=== PATIENT | male | born 1950 | race Caucasian/White ===

== ENCOUNTER → 2017-07-17 | Outpatient (CLI) | payer MEDICARE, OTHER ==
[~2017-07-17] MED LIST: ALLO100T70 PO; AMOX-559 PO; ASPI81TA94 PO; BARIUM SULFATE 176 GM BTL PO ONE; BARIUM SULFATE 340 GM POWD ONE; BENA20TA3 PO; HYDR-4240 PO; KET10 PO; LIPITOR; NAPR-744 PO; TAMS0.4C25 PO; TRAM-627 PO; VITA1CAP46 PO
[2017-07-17 08:14] LABS: PLATELET COUNT, AUTOMATED 242 K/uL (150-450)
--- NOTE | 2017-07-17 17:49 | RADIOLOGY IMAGING REPORT ---
[facility] PATIENT NAME: Silvano Dahl : 1950 MR: [id number] V: [id number] EXAM DATE: ORDERING PHYSICIAN: LOLA CUNNINGHAM TECHNOLOGIST: Location: [facility] Patient: Silvano Dahl : 1950 Visit/Account:[id number] Date of Sevice: 07/17/2017 Exam type: UPPER GI W/SMALL BOWEL SERIES History: Anemia Comparison: None. Findings: Preliminary sterilizer operator film of abdomen reveals a large amount of fecal material throughout the colon which can be seen with constipation. Double contrast upper GI series was performed with thick and thin ba rium. There is a small hiatal hernia with a large amount of gastroesophageal reflux. Very mild narrowing was identified at the lower esophageal sphincter. No definite mucosal erosions were seen. Remainder of the stomach duodenal bulb and duodenal C-loop are unremarkable. Barium was then followed through out the nondilated small bowel to the unremarkable terminal ileum. The mucosal pattern is unremarkab le. Transit time to the right-sided colon was 45 minutes. Of note there appear to be extrinsic mass effect displacing the loops of small bowel superiorly from the pelvis and mid abdomen without obstru ction. The fluoroscopy dose area product was 1502.57 micro-Troy per meter squared IMPRESSION: 1. Small hiatal hernia with a large amount of gastric esophageal reflux and mild narrowing of the lo wer esophageal sphincter The small bowel did not appear dilated with transit time to the right-sided colon in 45 minutes. The mucosal pattern also appear unremarkable however there appear to be extrinsic mass effect on the maddie tral small bowel loops displacing the bowel superiorly from the pelvis and mid abdomen. If an intra- abdominal or pelvic mass is of clinical concern CT may be helpful. Report Dictated By: Brigitte Barton MD at 07/17/2017 5:40 PM Report E-Signed By: Brigitte Barton MD at 07/17/2017 5:46 PM WSN:[email or web address]
== END ==
LOC: RAD 01:28
PROVIDERS: ATTEND Internal Medicine
DX: K21.9 Gastro-esophageal reflux disease without esophagitis (principal); K44.9 Diaphragmatic hernia without obstruction or gangrene; K22.2 Esophageal obstruction
CPT/HCPCS: 36415; 74245; 85025

== ENCOUNTER → 2017-07-18 | Outpatient (CLI) | payer MEDICARE, OTHER ==
[~2017-07-18] MED LIST changes: -BARIUM SULFATE 176 GM BTL PO ONE; -BARIUM SULFATE 340 GM POWD ONE
== END ==
LOC: LAB 09:24
PROVIDERS: ATTEND Internal Medicine
DX: D64.9 Anemia, unspecified (principal); R30.0 Dysuria
CPT/HCPCS: 36415; 81001; 82728; 83540; 85018; 85045; 87088

== ENCOUNTER 2017-07-19 10:34 | Outpatient (RCR) | payer MEDICARE, OTHER | END 2017-07-19 18:00 | disposition home or self-care (01) | LOC: CT 10:34 | PROVIDERS: ATTEND Internal Medicine | DX: R71.0 Precipitous drop in hematocrit (principal); K63.89 Other specified diseases of intestine; D64.9 Anemia, unspecified | CPT/HCPCS: 82565 ==

== ENCOUNTER 2017-07-19 12:24 | Inpatient (IN) | payer MEDICARE, OTHER ==
[~2017-07-19] VITALS: Ht 182.9 cm; Wt 88.5 kg
--- NOTE | 2017-07-19 12:54 | ER Report ---
History and Physical Time Seen By MD: 12:43 Hx. of Stated Complaint: Pt. here for abnormal lab values. Elevated Creat and decreased GFR. Pt. states he is has no symptoms other than his UTI sx and he is on an antibiotice. Pt. states he is still voiding normally. HPI/ROS CHIEF COMPLAINT: Renal failure HISTORY OF PRESENT ILLNESS: 59-year-old male patient presents to emergency room with complaint of renal failure. Patient states he feels fine. He was going to have a CAT scan done to evaluate a mass in his abdomen. He states they checked his kidney function today which was negative. He was referred to the emergency room at that time. Patient states he's feeling fine. States these voiding normally, that he is not had any difficulties now. Patient states he was started on Flomax due to some BPH. He denies any previous history with his kidney function. Patient states he is urinating 4-5 times a day. Patient was stopped on NSAIDs in the recent past. REVIEW OF SYSTEMS: Respiratory: No cough, no dyspnea. Cardiovascular: No chest pain, no palpitations. Gastrointestinal: No vomiting, no abdominal pain. Musculoskeletal: No back pain. Allergies: Coded Allergies: No Known Drug Allergies (Unverified , 07/19/17) Home Meds Active Scripts Amoxicillin/Pot Clav 875-125 Mg Tab (AUGMENTIN 875-125 TABLET) 1 Each Tablet, 1 TAB PO Q12H for 10 Days, #20 TAB Prov:LOLA CUNNINGHAM MD 07/18/17 Benazepril Hcl (LOTENSIN) 20 Mg Tablet, 1 TAB PO QDAY, #90 TAB 4 Refills Prov:LOLA CUNNINGHAM MD 05/02/17 Reported Medications Vitamin B Complex (VITAMIN B COMPLEX) 1 Each Capsule, 1 EACH PO QDAY, CAPSULE 05/10/17 Tamsulosin Hcl (FLOMAX) 0.4 Mg Cap.er.24h, 0.4 MG PO QDAY, CAP 02/14/17 Discontinued Reported Medications Aspirin (ASPIRIN) 81 Mg Tab.chew, 81 MG PO DAILY, TAB.CHEW 05/13/13 Past Medical/Surgical History Patient has a past medical history of hypertension, arthritis, BPH, anemia, alcohol use. Patient has a surgical history of vasectomy, reversal, hernia repair, left shoulder surgery, back surgery, carpal tunnel bilaterally. Patient has a family medical history of cancer. Reviewed Nurses Notes: Yes Hx Smoking: No Smoking Status: Never Smoker Hx Substance Use Disorder: No Hx Alcohol Use: Yes Constitutional Vital Sign - Last 24 Hours 07/19/17 07/19/17 07/19/17 12:34 14:40 14:58 Temp 98.8 Pulse 78 Resp 20 18 B/P (MAP) 162/83 173/79 173/79 (110) Pulse Ox 95 O2 Delivery Room Air Intake and Output 07/19/17 07/19/17 07/20/17 15:00 23:00 07:00 Intake Total 500 ml Output Total 2125 ml Balance -1625 ml Physical Exam General Appearance: The patient is alert, has no immediate need for airway protection and no current signs of toxicity. Respiratory: Chest is non tender, lungs are clear to auscultation. Cardiac: regular rate and rhythm. Gastrointestinal: Abdomen is soft and non tender, no masses, bowel sounds normal. Musculoskeletal: Neck: Neck is supple and non tender. Extremities have full range of motion and are non tender. Skin: No rashes or lesions. DIFFERENTIAL DIAGNOSIS: After history and physical exam differential diagnosis was considered for acute kidney failure, abdominal mass. Medical Decision Making Data Points Result Diagram: 07/19/17 1255 07/19/17 1255 Laboratory Hematology Test 07/19/17 12:55 07/19/17 12:57 Red Blood Count 3.18 M/uL (4.00-5.60) Mean Corpuscular Volume 94.7 fL (80.0-96.0) Mean Corpuscular Hemoglobin 32.2 pg (26.0-33.0) Mean Corpuscular Hemoglobin Concent 34.0 g/dL (32.0-36.0) Red Cell Distribution Width 13.5 % (11.5-14.5) Mean Platelet Volume 6.7 fL (7.2-11.1) Neutrophils (%) (Auto) 74.5 % (39.4-72.5) Lymphocytes (%) (Auto) 14.5 % (17.6-49.6) Monocytes (%) (Auto) 7.4 % (4.1-12.4) Eosinophils (%) (Auto) 2.6 % (0.4-6.7) Basophils (%) (Auto) 1.0 % (0.3-1.4) Nucleated RBC Relative Count (auto) 0.0 /100WBC Neutrophils # (Auto) 6.8 K/uL (2.0-7.4) Lymphocytes # (Auto) 1.3 K/uL (1.3-3.6) Monocytes # (Auto) 0.7 K/uL (0.3-1.0) Eosinophils # (Auto) 0.2 K/uL (0.0-0.5) Basophils # (Auto) 0.1 K/uL (0.0-0.1) Nucleated RBC Absolute Count (auto) 0.00 K/uL Sodium Level 137 mmol/L (137-145) Potassium Level 5.9 mmol/L (3.5-5.0) Chloride Level 103 mmol/L (98-107) Carbon Dioxide Level 19 mmol/L (22-30) Blood Urea Nitrogen 93 mg/dl (9-21) Creatinine 9.60 mg/dl (0.66-1.25) Glomerular Filtration Rate Calc 5.5 Random Glucose 151 mg/dl (75-110) Calcium Level 9.9 mg/dl (8.4-10.2) Total Bilirubin 0.5 mg/dl (0.2-1.3) Aspartate Amino Transf (AST/SGOT) 16 U/L (0-35) Alanine Aminotransferase (ALT/SGPT) 22 U/L (0-56) Alkaline Phosphatase 65 U/L (0-126) Total Protein 8.0 gm/dl (6.3-8.2) Albumin 4.3 g/dl (3.5-5.0) Urine Color Yellow Urine Clarity Turbid Urine pH 6.0 pH (4.8-9.5) Urine Specific [place] 1.008 Urine Protein 30 mg/dL (NEGATIVE) Urine Glucose (UA) Negative mg/dL (NEGATIVE) Urine Ketones Negative mg/dL (NEGATIVE) Urine Blood Small (NEGATIVE) Urine Nitrite Negative (NEGATIVE) Urine Bilirubin Negative (NEGATIVE) Urine Urobilinogen Negative mg/dL (0.2-1.9) Urine Leukocyte Esterase Large (NEGATIVE) Urine RBC 22 /HPF (0-2/HPF) Urine WBC 1165 /HPF (0-5/HPF) Urine WBC Clumps Many /HPF Urine Squamous Epithelial Cells None /LPF (</=FEW) Urine Amorphous Crystals Few /HPF Urine Bacteria Few /HPF (NONE-FEW) Urine Mucus None /HPF (NONE-FEW) Chemistry Test 07/19/17 12:55 07/19/17 12:57 White Blood Count 9.2 k/uL (4.5-11.0) Red Blood Count 3.18 M/uL (4.00-5.60) Hemoglobin 10.3 g/dL (14.0-18.0) Hematocrit 30.1 % (42.0-52.0) Mean Corpuscular Volume 94.7 fL (80.0-96.0) Mean Corpuscular Hemoglobin 32.2 pg (26.0-33.0) Mean Corpuscular Hemoglobin Concent 34.0 g/dL (32.0-36.0) Red Cell Distribution Width 13.5 % (11.5-14.5) Platelet Count 238 K/uL (150-450) Mean Platelet Volume 6.7 fL (7.2-11.1) Neutrophils (%) (Auto) 74.5 % (39.4-72.5) Lymphocytes (%) (Auto) 14.5 % (17.6-49.6) Monocytes (%) (Auto) 7.4 % (4.1-12.4) Eosinophils (%) (Auto) 2.6 % (0.4-6.7) Basophils (%) (Auto) 1.0 % (0.3-1.4) Nucleated RBC Relative Count (auto) 0.0 /100WBC Neutrophils # (Auto) 6.8 K/uL (2.0-7.4) Lymphocytes # (Auto) 1.3 K/uL (1.3-3.6) Monocytes # (Auto) 0.7 K/uL (0.3-1.0) Eosinophils # (Auto) 0.2 K/uL (0.0-0.5) Basophils # (Auto) 0.1 K/uL (0.0-0.1) Nucleated RBC Absolute Count (auto) 0.00 K/uL Glomerular Filtration Rate Calc 5.5 Calcium Level 9.9 mg/dl (8.4-10.2) Total Bilirubin 0.5 mg/dl (0.2-1.3) Aspartate Amino Transf (AST/SGOT) 16 U/L (0-35) Alanine Aminotransferase (ALT/SGPT) 22 U/L (0-56) Alkaline Phosphatase 65 U/L (0-126) Total Protein 8.0 gm/dl (6.3-8.2) Albumin 4.3 g/dl (3.5-5.0) Urine Color Yellow Urine Clarity Turbid Urine pH 6.0 pH (4.8-9.5) Urine Specific [place] 1.008 Urine Protein 30 mg/dL (NEGATIVE) Urine Glucose (UA) Negative mg/dL (NEGATIVE) Urine Ketones Negative mg/dL (NEGATIVE) Urine Blood Small (NEGATIVE) Urine Nitrite Negative (NEGATIVE) Urine Bilirubin Negative (NEGATIVE) Urine Urobilinogen Negative mg/dL (0.2-1.9) Urine Leukocyte Esterase Large (NEGATIVE) Urine RBC 22 /HPF (0-2/HPF) Urine WBC 1165 /HPF (0-5/HPF) Urine WBC Clumps Many /HPF Urine Squamous Epithelial Cells None /LPF (</=FEW) Urine Amorphous Crystals Few /HPF Urine Bacteria Few /HPF (NONE-FEW) Urine Mucus None /HPF (NONE-FEW) Urinalysis Test 07/19/17 12:57 Urine Color Yellow Urine Clarity Turbid Urine pH 6.0 pH (4.8-9.5) Urine Specific [place] 1.008 Urine Protein 30 mg/dL (NEGATIVE) Urine Glucose (UA) Negative mg/dL (NEGATIVE) Urine Ketones Negative mg/dL (NEGATIVE) Urine Blood Small (NEGATIVE) Urine Nitrite Negative (NEGATIVE) Urine Bilirubin Negative (NEGATIVE) Urine Urobilinogen Negative mg/dL (0.2-1.9) Urine Leukocyte Esterase Large (NEGATIVE) Urine RBC 22 /HPF (0-2/HPF) Urine WBC 1165 /HPF (0-5/HPF) Urine WBC Clumps Many /HPF Urine Squamous Epithelial Cells None /LPF (</=FEW) Urine Amorphous Crystals Few /HPF Urine Bacteria Few /HPF (NONE-FEW) Urine Mucus None /HPF (NONE-FEW) EKG/Imaging Imaging COMPUTED TOMOGRAPHY OF THE Abdomen and Pelvis without CONTRAST INDICATION: Reportedly an abdominal mass. TECHNIQUE: Contiguous axial 3.[address] images were obtained through the abdomen and pelvis without intravenous contrast. Of note, there is significant residual barium within the colon from the upper GI study of July 17, 2017. Coronal and sagittal reformatted images were submitted. COMPARISON: Upper GI July 17, 2017. FINDINGS: With the large volume of barium in the colon, which results in marked streak artifact throughout almost the entirety of the abdomen and pelvis, the examination should be considered essentially nondiagnostic. The bladder is distended. There is moderate aortic atherosclerosis. The morphology of the left kidney appears atypical but is largely obscured. There are degenerative findings in the spine. Mild atelectasis at the lung bases. IMPRESSION: Essentially nondiagnostic study given extensive barium within the colon and associated artifact. However, the bladder is significantly distended and likely results in the small bowel displacement described/demonstrated on the upper GI study of July 17, 2017. Atypical appearing morphology of the left kidney (largely obscured by artifact) . Repeat CT when barium has cleared the colon is recommended. One of the following dose optimization techniques was utilized in the performance of this exam: Automated exposure control; adjustment of the mA and/ or kV according to the patient's size; or use of an iterative reconstruction technique. Specific details can be referenced in the facility's radiology CT exam operational policy. Report Dictated By: Nick Valdez MD at 07/19/2017 2:30 PM Report E-Signed By: Nick Valdez MD at 07/19/2017 2:38 PM Renal ultrasound Indication: Abnormal creatinine. History of urinary tract infection. Comparison: None available Findings: Right kidney measures 11.8 x 6.4 x 5.4 cm in cc, AP, and transverse dimensions respectively. Left kidney measures 11.5 x 4.9 x 5.3 cm in cc, AP, and transverse dimensions respectively. There is normal echogenicity of the bilateral kidneys. There is a least moderate hydronephrosis seen bilaterally without stones or masses identified. Blood flow both kidneys normal symmetric. The resistive index right kidney 0.75 and the left 0.63. Bilateral ureteral jets were seen. Left ureteral jet was not a strong as the right. Urinary bladder imaging shows debris without other focal normality and there is prominent post residual 1339 mL.. Visualized abdominal aorta and IVC are unremarkable. IMPRESSION: 1. Moderate bilateral hydronephrosis without cause identified. 2. There is debris seen within the urinary bladder. There is significant postvoid residual present in the urinary bladder. Report Dictated By: Keegan Diaz at 07/19/2017 2:12 PM Report E-Signed By: Keegan Diaz at 07/19/2017 2:14 PM ED Course/Re-evaluation ED Course Patient was admitted to an exam room, history and physical were obtained. Differential diagnoses were considered. On examination lungs are clear, heart regular, abdomen soft nontender. Repeat labs were done. A CBC, CMP, urinalysis, ultrasound of kidneys. The lab results showed an elevated creatinine of 9.6, GFR 5.5, potassium of 5.9. Patient had a hemoglobin of 10.3. The renal ultrasound showed bilateral hydronephrosis. A CT scan of the abdomen and pelvis was done. Liver difficult to ascertain any findings in the intestines secondary to barium contrast. However the patient does have significant urinary retention. A Collins was placed and 2100 cc were removed. I discussed the case with Dr. Gavin, hospitalist at [facility], who recommended talking with the hospitalist here. She states that they're not couple that should be more than happy to admit. Her thought was that they would just monitor and continued to drain the bladder using a Collins. I then discussed the case with Dr. Dow, hospitalist, who came down and evaluated the patient. He attempted to contact Dr. Louis or Dr. Dean, however they were unavailable. Dr. Dow did agree to accept the patient for admission. Decision to Disposition Date: Jul 19, 2017 Decision to Disposition Time: 16:06 Depart Departure Latest Vital Signs Vital Signs Date Time Temp Pulse Resp B/P (MAP) Pulse Ox O2 Delivery O2 Flow Rate FiO2 07/19/17 14:58 18 173/79 (110) 07/19/17 12:34 98.8 78 95 Room Air Impression: Primary Impression: Acute renal failure Additional Impression: Urinary obstruction Condition: Improved Disposition: Admitted from ER Referrals: FAZAL MARCUM MD (PCP) Problem Qualifiers Primary Impression: Acute renal failure Acute renal failure type: unspecified Qualified Codes: N17.9 - Acute kidney failure, unspecified MERRY BLANCOSSBrian GAYTAN Jul 19, 2017 12:54
[2017-07-19] MEDS ORDERED: NS(*) 0.9% 500 ML BAG 500 ML IV ONE (12:55)
[2017-07-19 13:09] LABS: PLATELET COUNT, AUTOMATED 238 K/uL (150-450)
--- NOTE | 2017-07-19 14:19 | RADIOLOGY IMAGING REPORT ---
FACILITY: [facility] PATIENT NAME: Silvano Dahl : 1950 MR: [id number] V: [id number] EXAM DATE: ORDERING PHYSICIAN: RENITA BLANCO TECHNOLOGIST: Location: Patient: Silvano Dahl : 1950 Visit/Account:[id number] Date of Sevice: 07/19/2017 Renal ultrasound Indication: Abnormal creatinine. History of urinary tract infection. Comparison: None available Findings: Right kidney measures 11.8 x 6.4 x 5.4 cm in cc, AP, and transverse dimensions respectively. Left kidney measures 11.5 x 4.9 x 5.3 cm in cc, AP, and transverse dimensions respectively. There is normal echogenicity of the bilateral kidneys. There is a least moderate hydronephrosis seen bilaterally without stones or masses identified. Blood flow both kidneys normal symmetric. The resistive index right kidney 0.75 and the left 0.63. Bilateral ureteral jets were seen. Left ureteral jet was not a strong as the right. Urinary bladder imaging shows debris without other focal normality and there is prominent post residu al 1339 mL.. Visualized abdominal aorta and IVC are unremarkable. IMPRESSION: 1. Moderate bilateral hydronephrosis without cause identified. 2. There is debris seen within the urinary bladder. There is significant postvoid residual present in the urinary bladder. Report Dictated By: Keegan Diaz at 07/19/2017 2:12 PM Report E-Signed By: Keegan Diaz at 07/19/2017 2:14 PM WSN:[id number]
--- NOTE | 2017-07-19 14:42 | RADIOLOGY IMAGING REPORT ---
FACILITY: [facility] - [place], [place] PATIENT NAME: Silvano Dahl : 1950 MR: [id number] V: [id number] EXAM DATE: ORDERING PHYSICIAN: RENITA BLANCO TECHNOLOGIST: Location: [facility] Patient: Silvano Dahl : 1950 Visit/Account:[id number] Date of Sevice: 07/19/2017 COMPUTED TOMOGRAPHY OF THE Abdomen and Pelvis without CONTRAST INDICATION: Reportedly an abdominal mass. TECHNIQUE: Contiguous axial 3.[address] images were obtained through the abdomen and pelvis without in travenous contrast. Of note, there is significant residual barium within the colon from the upper GI study of July 17, 2017. Coronal and sagittal reformatted images were submitted. COMPARISON: Upper GI July 17, 2017. FINDINGS: With the large volume of barium in the colon, which results in marked streak artifact throughout almo st the entirety of the abdomen and pelvis, the examination should be considered essentially nondiagno stic. The bladder is distended. There is moderate aortic atherosclerosis. The morphology of the left kidney appears atypical but is largely obscured. There are degenerative fi ndings in the spine. Mild atelectasis at the lung bases. IMPRESSION: Essentially nondiagnostic study given extensive barium within the colon and associated artifact. However, the bladder is significantly distended and likely results in the small bowel displacement de scribed/demonstrated on the upper GI study of July 17, 2017. Atypical appearing morphology of the left kidney (largely obscured by artifact). Repeat CT when bariu m has cleared the colon is recommended. One of the following dose optimization techniques was utilized in the performance of this exam: Autom ated exposure control; adjustment of the mA and/or kV according to the patient's size; or use of an i terative reconstruction technique. Specific details can be referenced in the facility's radiology C T exam operational policy. Report Dictated By: Nick Valdez MD at 07/19/2017 2:30 PM Report E-Signed By: Nick Valdez MD at 07/19/2017 2:38 PM WSN:[id number]
[2017-07-19] MEDS ORDERED: NS(*) 0.9% 1000 ML BAG 1,000 ML IV PRN (16:30)
[2017-07-19 16:42] VITALS: BP 160/78
[2017-07-19] MEDS ORDERED: cefTRIAXone 2 GM VIAL IVP SCH (18:00)
[2017-07-19 18:45] VITALS: BP 165/80
--- NOTE | 2017-07-19 18:56 | History & Physical ---
History of Present Illness History of Present Illness 67yo male with BPH who was told to go to the ER for an elevated creatinine. 8 months ago, he started having incontinence of urine at night. He has had 3-4 times a night nocturia for years, but never incontinence. He was started on Flomax daily without result. He was supposed to increase to bid, but didn't because daily dosing didn't help. For the last month, he has had a decreased appetite and a sensation of numbness on the end of his tongue. For the last week, he has had some burning with urination. 2 days ago, he had a upper GI with small bowel follow through that showed a small hiatal hernia with a large amount of reflux, mild LES narrowing, but there appeared to be an extrinsic mass effect on the central small bowel loops. Yesterday, he was had a UA that showed many wbc so was started on Augmentin. Also, he had a creatinine of 8.9 done to clear for a CT planned for today to evaluate the mass effect. Today, he was told to go to the ER. He reports normal frequency of urination. No hematuria/f/c/nausea/vomiting. In the ER, a Collins catheter was placed and he had 2100cc of PVR. History Problems: (1) HTN (hypertension) Status: Chronic (2) BPH (benign prostatic hyperplasia) (3) History of inguinal hernia repair (4) Gout Home Meds Active Scripts Amoxicillin/Pot Clav 875-125 Mg Tab (AUGMENTIN 875-125 TABLET) 1 Each Tablet, 1 TAB PO Q12H for 10 Days, #20 TAB Prov:LOLA CUNNINGHAM MD 07/18/17 Benazepril Hcl (LOTENSIN) 20 Mg Tablet, 1 TAB PO QDAY, #90 TAB 4 Refills Prov:LOLA CUNNINGHAM MD 05/02/17 Reported Medications Vitamin B Complex (VITAMIN B COMPLEX) 1 Each Capsule, 1 EACH PO QDAY, CAPSULE 05/10/17 Tamsulosin Hcl (FLOMAX) 0.4 Mg Cap.er.24h, 0.4 MG PO QDAY, CAP 02/14/17 Discontinued Reported Medications Aspirin (ASPIRIN) 81 Mg Tab.chew, 81 MG PO DAILY, TAB.CHEW 05/13/13 Allergies: Coded Allergies: No Known Drug Allergies (Unverified , 07/19/17) Patient History: FH: colon cancer (in brothers ) Other Social/Family Hx No tobacco and current alcohol use. . Hx Smoking: No Smoking Status: Never Smoker Caffeine Intake: Coffee Caffeine/Cups Per Day: 3-4/DAY Hx Alcohol Use: Yes Hx Substance Use Disorder: No Review of Systems All Systems Reviewed/Normal: Yes, Except as Noted Exam Vital Signs Vital Signs Date Time Temp Pulse Resp B/P (MAP) Pulse Ox O2 Delivery O2 Flow Rate FiO2 07/19/17 16:42 98.2 67 16 160/78 (105) 95 Room Air General Appearance: Alert, Awake, No Acute Distress Neuro: No Gross deficits Eyes: PERRLA ENT: Moist Mucous Membranes Cardiovascular: Regular Rate and Rhythm Respiratory: Clear to Auscultation GI: Abd Soft and Non-Tender Extremities: No Edema Integumentary: No Jaundice, No Cyanosis Medical Decision Making Data Points Result Diagram: 07/19/17 1255 07/19/17 1255 Item Value Date Time Creatinine 8.90 mg/dl *H 07/18/17 0930 Creatinine 9.60 mg/dl *H 07/19/17 1255 Random Glucose 151 mg/dl H 07/19/17 1255 Potassium Level 2.9 mEQ/L L 02/21/17 1012 Blood Urea Nitrogen 40 H 02/21/17 1012 Creatinine 2.65 mg/dl H 02/21/17 1012 Iron Level 82 mcg/dl 06/06/17 1145 Ferritin 367 ng/mL 06/06/17 1145 Prostate Specific Antigen Screen 0.78 ng/ml 08/24/15 1127 Hemoglobin 10.2 g/dL L 07/17/17 0805 Hemoglobin 9.8 g/dL L 07/18/17 0930 Hemoglobin 10.3 g/dL L 07/19/17 1255 White Blood Count 8.4 k/uL 07/17/17 0805 White Blood Count 9.2 k/uL 07/19/17 1255 Mean Corpuscular Volume 94.6 fL 07/17/17 0805 Mean Corpuscular Volume 94.7 fL 07/19/17 1255 Platelet Count 238 K/uL 07/19/17 1255 Platelet Count 242 K/uL 07/17/17 0805 Hemoglobin 10.0 g/dL L 06/27/17 1020 Creatinine 1.20 mg/dl 2/9/16 1127 Urine Leukocyte Esterase Large H 07/18/17 0934 Urine RBC 3 /HPF 07/18/17 0934 Urine WBC 130 /HPF 07/18/17 0934 Urine WBC Clumps Mod /HPF 07/18/17 0934 Urine Leukocyte Esterase Large H 07/19/17 1257 Urine RBC 22 /HPF 07/19/17 1257 Urine WBC 1165 /HPF 07/19/17 1257 Urine WBC Clumps Many /HPF 07/19/17 1257 Stool Occult Blood (IFOB) Negative 06/30/17 1009 EKG / Imaging Imaging Abd/Pelvis CT - Essentially nondiagnostic study given extensive barium within the colon and associated artifact. However, the bladder is significantly distended and likely results in the small bowel displacement described/demonstrated on the upper GI study of July 17, 2017. Atypical appearing morphology of the left kidney (largely obscured by artifact) . Repeat CT when barium has cleared the colon is recommended. Renal US - 1. Moderate bilateral hydronephrosis without cause identified. 2. There is debris seen within the urinary bladder. There is significant postvoid residual present in the urinary bladder. 07/17/17 Upper Gi and Small Bowel Xray - 1. Small hiatal hernia with a large amount of gastric esophageal reflux and mild narrowing of the lower esophageal sphincter The small bowel did not appear dilated with transit time to the right-sided colon in 45 minutes. The mucosal pattern also appear unremarkable however there appear to be extrinsic mass effect on the central small bowel loops displacing the bowel superiorly from the pelvis and mid abdomen. If an intra- abdominal or pelvic mass is of clinical concern CT may be helpful. Assessment and Plan Problems: (1) Acute renal failure Status: Acute Assessment & Plan: Secondary to bladder outlet obstruction of unknown duration and exacerbated by benazepril use. He has had nocturnal incontinence for 8 months and an elevated creatinine in February. He had a PVR of 2100cc today with catheter placement and bilateral hydronephrosis seen on US. He will be monitored closely for post obstructive diuresis with serial BMP and close output monitoring. Dr. Santos to see the patient. (2) Hyperkalemia Status: Acute Assessment & Plan: Secondary to ARF and exacerbated by benazepril use. Watch on telemetry and follow BMP. (3) Urinary obstruction Status: Acute Assessment & Plan: Likely the prostate is the cause. See above. PSA today. (4) Pyuria Status: Acute Assessment & Plan: Seen the of and the day before admission. Mild pyuria for a week prior to admission. He has been started on Ceftriaxone and will await cultures. (5) Anemia Status: Acute Assessment & Plan: Noted since April. Normocytic. Iron studies, B12 and colonoscopy normal. Likely, related to ongoing bladder outlet obstruction causing renal failure. (6) HTN (hypertension) Status: Chronic Assessment & Plan: Holding benazepril. Will let kidneys recover, but likely he will need a different medication. Copies to: LOLA CUNNINGHAM MD Venous Thromboembolism Antithrombotics Is Pt On Any Antithrombotics?: No Exam Sepsis Risk: No Definite Risk Problem Qualifiers (1) Acute renal failure: Acute renal failure type: unspecified Qualified Codes: N17.9 - Acute kidney failure, unspecified DAMIR PENA MD Jul 19, 2017 18:56
[2017-07-19] MEDS: NS 0.45%(*) 1000 ML BAG 1,000 ML IV PRN (20:01)
[2017-07-20 00:05] VITALS: BP 164/74
[2017-07-20] MEDS: NS 0.45%(*) 1000 ML BAG 1,000 ML IV PRN ×2 (04:10→17:51)
[2017-07-20 04:12] VITALS: BP 151/71
[2017-07-20 05:55] LABS: PLATELET COUNT, AUTOMATED 211 K/uL (150-450)
[2017-07-20 08:33] VITALS: BP 150/79
[2017-07-20 08:55] VITALS: Ht 182.9 cm; Wt 88.5 kg
--- NOTE | 2017-07-20 11:32 | Hospitalist Progress Note ---
Subjective Progress Notes Subjective This patient was admitted for obstructive uropathy. He had no acute events overnight. Patient Complains of: Cardiovascular: No: Chest Pain Respiratory: No: Shortness of Breath Physical Exam Vital Signs Date Time Temp Pulse Resp B/P (MAP) Pulse Ox O2 Delivery O2 Flow Rate FiO2 07/20/17 08:33 97.5 81 16 150/79 (102) 91 Room Air Intake and Output 07/21/17 07:00 Intake Total 500 ml Output Total 1080 ml Balance -580 ml Intake Oral 500 ml Output Urine Total 1080 ml Cardiovascular: Regular Rate and Rhythm Respiratory: Clear to Auscultation Result Diagram: 07/20/1751007/20/17510 Assessment and Plan Problems: (1) Acute renal failure Status: Acute Assessment & Plan: Secondary to bladder outlet obstruction. His renal function has been improving after placement of a catheter. We do have him on IV fluids. (2) Hyperkalemia Status: Acute Assessment & Plan: His benazepril has been discontinued and his potassium has been improving with improvement in his renal function. (3) Urinary obstruction Status: Acute Assessment & Plan: A Collins catheter has been placed as above. He will be followed by Dr. Santos. (4) Pyuria Status: Acute Assessment & Plan: He did have pyuria on his urinalysis, but cultures have been negative. He was on empiric treatment with ceftriaxone, but this has been discontinued. (5) Anemia Status: Acute Assessment & Plan: This is likely the result of chronic renal failure. His Hgb has been stable. (6) HTN (hypertension) Status: Chronic Assessment & Plan: His benazepril has been discontinued secondary to renal failure and hyperkalemia. We will defer alternative treatments to his primary care provider. Exam Sepsis Risk: No Definite Risk Problem Qualifiers (1) Acute renal failure: Acute renal failure type: unspecified Qualified Codes: N17.9 - Acute kidney failure, unspecified FAZAL YUNG DO Jul 20, 2017 11:32
--- NOTE | 2017-07-20 15:31 | CONSULTATION ---
EVENT DATE: July 20, 2017 REASON FOR CONSULTATION Urinary retention. HISTORY OF PRESENT ILLNESS The patient is a 67-year-old white male who was noted to have an elevated creatinine after being evaluated for administration of IV contrast for a CT scan for abdominal pain and possible mass noted on a recent upper GI study. The creatinine performed was 9.6. He was also noted to have hyperkalemia at 5.9. When seen in the Emergency Room, the patient was without significant complaints. He denied abdominal, flank, or pelvic pain or discomfort. He said that he was voiding at his baseline. A renal ultrasound was obtained which showed a very distended bladder with bilateral moderate hydroureteronephrosis. A CT scan was performed after this which was greatly obscured by his prior oral contrast for his upper GI. By my evaluation of looking at this, his kidneys were mostly obscured. However, his bladder was greatly distended and appeared to have approximately 1800 mL. His prostate was not overtly enlarged and appeared approximately 30 to 35 g in size. There was no evidence of bladder stones or other anomalies. You can clearly see his dilated ureters down to the insertion into the bladder. The patient was admitted by the hospitalist service after a Collins catheter was placed, and he drained out 2000 mL of urine. The patient has had a moderate post-obstructive diuresis, but has been able to keep up with p.o. intake and a moderate IV fluid replacement. Repeat laboratory data performed on July 20, 2017, showed his creatinine had decreased from 9.6 down to 8.0, and his potassium had fallen to 5.5. The patient also had a urine culture performed which showed no growth in one day. A PSA was obtained which was 3.43. This was up from his baseline of 0.7 for the past several years dating back to 2013. The last creatinine that I can find in the computer system was 1.2 a year and a half ago. Upon questioning the patient, he states that he had been having some leakage of urine at night while asleep, but this had improved over the past two weeks. He has also continued to have nocturia four to five times. During the day, the patient denies significant problems. He states his force of stream is adequate and feels empty most of the time. He denies gross hematuria, flank pain, history of kidney stones, leg weakness, chronic constipation, headaches, or seizure disorder. PAST MEDICAL HISTORY 1. Hypertension. 2. Gout. 3. Anemia. 4. Benign prostatic hyperplasia. PAST SURGICAL HISTORY 1. Bilateral cataracts. 2. Colonoscopy. 3. Bilateral vas with vas reversal. 4. L-spine disk surgery. 5. Left shoulder surgery. 6. Carpal tunnel surgery. 7. Left inguinal hernia repair. PREADMISSION MEDICATIONS 1. Benazepril. 2. Flomax. 3. Multivitamins. 4. He has recently been started on Augmentin. ALLERGIES No known drug allergies. FAMILY HISTORY Negative for prostate cancer. REVIEW OF SYSTEMS The patient denies shortness of breath, chest pain, lower extremity edema, productive cough, fever, chills, or a bleeding disorder. PHYSICAL EXAMINATION GENERAL: The patient is a well-developed, well-nourished white male in no acute distress. HEENT: Normocephalic, atraumatic. CHEST: Clear to auscultation bilaterally. CARDIOVASCULAR: Regular rate and rhythm. ABDOMEN: Soft, nontender. No masses are palpated. GENITOURINARY: The patient has a normal-appearing penis. Testes descended bilaterally. He has a Collins catheter in place draining clear urine. Digital rectal exam is deferred. EXTREMITIES: Without clubbing, cyanosis, or edema. NEUROLOGIC: Nonfocal. IMPRESSION A 67-year-old white male in acute urinary retention with bilateral obstructive uropathy with hydroureteronephrosis with acute renal insufficiency with hyperkalemia. He is also noted to have an elevated PSA, up from his baseline. RECOMMENDATIONS Continue the Collins catheter drainage and continue with replacement from his post -obstructive diuresis. After this stabilizes and his creatinine has also stabilized, I would leave his catheter in place at least seven to 10 days and then perform a followup renal ultrasound to ensure that his hydronephrosis has improved. His elevated PSA from his baseline is likely related to his recent episode of acute urinary retention, and we will repeat this as well as perform a digital rectal exam as well as workup the cause of his retention in the office in followup. LAW
[2017-07-20 20:02] VITALS: BP 150/77
[2017-07-21 02:00] VITALS: BP 151/79
[2017-07-21 09:05] VITALS: BP 158/76
--- NOTE | 2017-07-21 11:30 | Medical Nutrition Therapy ---
Nutrition Anthropometrics Height (Inches): 72.00 Height (Calculated Centimeters: 182.150869 Weight (Pounds): 195 Weight (Calculated Kilograms): 88.451 BMI Calculated: 26.44 Rickie Nutrition Score: Adequate Rickie Nutrition Risk Score: 20 Dietary Referral Nutrition Risk Factors: Nutrition Risk Comment: Physical Findings Physical Appearance: Overweight BMI 25-29 Skin Appearance Skin Appearance: Edema Edema Location Modifier: Edema Location: Type of Edema: Degree of Edema: Gastrointestinal Symptoms GI Symtoms: Tube Present: Bowel Sounds: Recent Bowel Pattern: Stool Characteristics: Nutrition/Food History No Significant Nutr. HX Nutritional Diagnosis Nutritional Risk Acuity 1: Acute/ES Renal Nutritional Risk Acuity 2: Pr Appetite > 3d Nutritional Risk Acuity 3: Fair Appetite Past Medical History: HTN, BPH, inguinal hernia, gout Nutritional Acuity: 1-High Nutrition Diagnosis: Inadequate Food Intake Nutrition Etiology: Physiological Causes Nutrition Problem/Etiology/Sym: Inadequate Oral Intake related to decreased ability to consume sufficient energy, e.g. no appetite AEB reports of insufficient intake of energy from diet when compared to requirements. Energy Requirement: 2370 ([place] Jeor: Actual BW X 1.4) Protein Requirement: 71 (Actual BW Kg X .8) Nutrition Intervention: Cont diet as ordered, Encourage intake Nutrition Monitoring & Eval Nutrition Goals: Eat 75-100% Meal RD Patient Assessment Time: [address] Assessment Type: RD Assessment Patient Nutrition Acuity: 1-High Follow Up Date: Jul 23, 2017 Nutritional Comment: Pt admitted for acute renal failure and hyperkalemia. Pt reports decreased appetite over the last month. Notable labs include low H/H, K+ 5.5, BUN 87, and Cr 8. Total pro and alb WNL. Pt on TOM with most meals consumed at 75-100% . Will continue to monitor intakes and labs. DAVID HERNANDEZ Jul 21, 2017 11:30
[2017-07-21 15:15] VITALS: BP 135/86
--- NOTE | 2017-07-21 15:26 | Hospitalist Progress Note ---
Subjective Progress Notes Subjective No new complaints. The patient states he feels fine. Physical Exam Vital Signs Date Time Temp Pulse Resp B/P (MAP) Pulse Ox O2 Delivery O2 Flow Rate FiO2 07/21/17 12:05 72 07/21/17 09:05 98.3 16 158/76 (103) 91 Room Air Intake and Output 07/22/17 07:01 Intake Total 1400 ml Output Total 1050 ml Balance 350 ml Intake Oral 1400 ml Output Urine Total 1050 ml General Appearance: Alert, Awake, No Acute Distress, Afebrile Neuro: No Gross deficits Cardiovascular: Regular Rate and Rhythm Respiratory: Clear to Auscultation GI: Soft and Non-Tender Extremities: Warm, Perfused Integumentary: Skin Intact without Lesion / Mass Psych: Appropriate Mood & Affect Result Diagram: 07/20/17 0511 07/21/17 0532 Assessment and Plan Problems: (1) Acute renal failure Status: Acute Assessment & Plan: Secondary to bladder outlet obstruction. His renal function has been slowly improving after placement of a catheter. We do have him on IV fluids. (2) Hyperkalemia Status: Acute Assessment & Plan: His benazepril has been discontinued and his potassium has been improving with improvement in his renal function. (3) Urinary obstruction Status: Acute Assessment & Plan: A Collins catheter has been placed as above. He will be followed by Dr. Santos. (4) Pyuria Status: Acute Assessment & Plan: He did have pyuria on his urinalysis, but cultures have been negative. He was on empiric treatment with ceftriaxone, but this has been discontinued. (5) Anemia Status: Acute Assessment & Plan: This is likely the result of chronic renal failure. His Hgb has been stable. (6) HTN (hypertension) Status: Chronic Assessment & Plan: His benazepril has been discontinued secondary to renal failure and hyperkalemia. We will defer alternative treatments to his primary care provider. Time Spent on Plan of Care: < 30 min Exam Sepsis Risk: No Definite Risk Problem Qualifiers (1) Acute renal failure: Acute renal failure type: unspecified Qualified Codes: N17.9 - Acute kidney failure, unspecified EMMA MURPHY MD Jul 21, 2017 15:26
[2017-07-21 18:43] VITALS: BP 157/74
[2017-07-21 22:14] VITALS: BP 148/81
[2017-07-21] MEDS: NS 0.45%(*) 1000 ML BAG 1,000 ML IV PRN (22:15)
[2017-07-22 07:16] VITALS: BP 143/77
[2017-07-22] MEDS ORDERED: INFLUENZA VIRUS VAC 0.5 ML SYR IM ONLY ONE (09:00)
[2017-07-22] MEDS ORDERED: NS 0.45%(*) 1000 ML BAG 1,000 ML IV PRN (09:29)
--- NOTE | 2017-07-22 09:35 | Hospitalist Progress Note ---
Subjective Progress Notes Subjective He denies any current complaints. Physical Exam Vital Signs Date Time Temp Pulse Resp B/P (MAP) Pulse Ox O2 Delivery O2 Flow Rate FiO2 07/22/17 07:30 92 Room Air 07/22/17 07:16 98.4 67 16 143/77 (99) Intake and Output 07/23/17 07:01 Intake Total 400 ml Output Total 875 ml Balance -475 ml Intake Oral 400 ml Output Urine Total 875 ml General Appearance: Alert, Awake Cardiovascular: Regular Rate and Rhythm Respiratory: Clear to Auscultation Psych: Alert & Oriented X3 Result Diagram: 07/20/17 0511 07/22/17 0700 Assessment and Plan Problems: (1) Acute renal failure Status: Acute Assessment & Plan: Secondary to bladder outlet obstruction. His renal function has been slowly improving after placement of a catheter. We do have him on IV fluids to match 1/2 urine output for possible post-obstructive diuresis. Will cut back on IV rate. watch labs. (2) Hyperkalemia Status: Acute Assessment & Plan: His benazepril has been discontinued and his potassium has been improving with improvements in his renal function. (3) Urinary obstruction Status: Acute Assessment & Plan: A Collins catheter has been placed as above. He will DC with it in place. He will receive teaching. He will be followed by Dr. Santos. (4) Pyuria Status: Acute Assessment & Plan: He did have pyuria on his urinalysis, but cultures have been negative. He was on empiric treatment with ceftriaxone, but this has been discontinued. (5) Anemia Status: Acute Assessment & Plan: This is likely the result of chronic renal failure. His Hgb /Hct have been stable. (6) HTN (hypertension) Status: Chronic Assessment & Plan: His benazepril has been discontinued secondary to renal failure and hyperkalemia. We will defer alternative treatments to his primary care provider. Exam Sepsis Risk: No Definite Risk Problem Qualifiers (1) Acute renal failure: Acute renal failure type: unspecified Qualified Codes: N17.9 - Acute kidney failure, unspecified FRANCIE MURPHY MD Jul 22, 2017 09:35
[2017-07-22 11:26] VITALS: BP 136/74
[2017-07-22 19:40] VITALS: BP 150/67
[2017-07-22 22:33] VITALS: BP 157/83
[2017-07-23 03:51] VITALS: BP 137/70
[2017-07-23 05:53] LABS: PLATELET COUNT, AUTOMATED 248 K/uL (150-450)
[2017-07-23 08:21] VITALS: BP 141/72
--- NOTE | 2017-07-23 08:39 | Hospitalist Depart ---
Discharge Summary Reason for Hosp/Final Diag: (1) Acute renal failure Status: Acute Hospital Course & Plan: Secondary to bladder outlet obstruction. His renal function has been slowly improving after placement of the Collins catheter. His initial creatinine was 9.6 at the time of admission and was down to 5.8 at time of discharge. We did have him on IV fluids for possible post-obstructive diuresis. He was seen by Dr. Santos and will be following up closely with him as an outpatient. He was doing very well from a clinical standpoint. He was eating and drinking normally. He was tolerating activities without difficulty. It is suspected his creatinine will continue to improve, but may take a couple of weeks to reach a baseline. (2) Urinary obstruction Status: Acute Hospital Course & Plan: A Collins catheter has been placed as above. He will discharge with it in place. He received teaching during his stay. He will be followed by Dr. Santos. (3) Hyperkalemia Status: Acute Hospital Course & Plan: His benazepril has been discontinued and his potassium has been improving along with improvements in his renal function. At the time of discharge his potassium was in normal range. (4) Pyuria Status: Acute Hospital Course & Plan: He did have pyuria on his urinalysis, but cultures have been negative. He was on empiric treatment with ceftriaxone, but this has been discontinued. (5) Anemia Status: Acute Hospital Course & Plan: This is likely the result of chronic renal failure. His Hgb/Hct have been stable. As his renal function improves, his Hgb/Hct should improve as well. (6) HTN (hypertension) Status: Chronic Hospital Course & Plan: His benazepril has been discontinued secondary to renal failure and hyperkalemia. His BPs have been in acceptable range during his stay. We will defer any treatment in the future to his primary care provider. Departure Weight (Pounds): 195 Result Diagram: 07/23/1751607/23/17516 Item Value Date Time Sodium Level 137 mmol/L 07/19/17 1255 Potassium Level 5.9 mmol/L H 07/19/17 1255 Chloride Level 103 mmol/L 07/19/17 1255 Carbon Dioxide Level 19 mmol/L L 07/19/17 1255 Blood Urea Nitrogen 93 mg/dl H 07/19/17 1255 Creatinine 9.60 mg/dl *H 07/19/17 1255 Glomerular Filtration Rate Calc 5.5 07/19/17 1255 Random Glucose 151 mg/dl H 07/19/17 1255 Calcium Level 9.9 mg/dl 07/19/17 1255 Total Bilirubin 0.5 mg/dl 07/19/17 1255 Aspartate Amino Transf (AST/SGOT) 16 U/L 07/19/17 1255 Alanine Aminotransferase (ALT/SGPT) 22 U/L 07/19/17 1255 Alkaline Phosphatase 65 U/L 07/19/17 1255 Total Protein 8.0 gm/dl 07/19/17 1255 Albumin 4.3 g/dl 07/19/17 1255 Prostate Specific Antigen 3.43 ng/ml 07/19/17 1902 Sodium Level 135 mmol/L L 07/20/17 0511 Potassium Level 5.5 mmol/L H 07/20/17 0511 Chloride Level 107 mmol/L 07/20/17 0511 Carbon Dioxide Level 16 mmol/L L 07/20/17 0511 Blood Urea Nitrogen 87 mg/dl H 07/20/17 0511 Creatinine 8.00 mg/dl *H 07/20/17 0511 Glomerular Filtration Rate Calc 6.7 07/20/17 0511 Random Glucose 87 mg/dl 07/20/17 0511 Calcium Level 9.0 mg/dl 07/20/17 0511 Sodium Level 137 mmol/L 07/21/17 0532 Potassium Level 5.5 mmol/L H 07/21/17 0532 Chloride Level 109 mmol/L H 07/21/17 0532 Carbon Dioxide Level 17 mmol/L L 07/21/17 0532 Blood Urea Nitrogen 77 mg/dl H 07/21/17 0532 Creatinine 7.00 mg/dl *H 07/21/17 0532 Glomerular Filtration Rate Calc 7.9 07/21/17 0532 Random Glucose 86 mg/dl 07/21/17 0532 Calcium Level 8.8 mg/dl 07/21/17 0532 Calcium Level 9.1 mg/dl 07/22/17 0700 Random Glucose 91 mg/dl 07/22/17 0700 Glomerular Filtration Rate Calc 8.6 07/22/17 0700 Creatinine 6.50 mg/dl *H 07/22/17 0700 Blood Urea Nitrogen 70 mg/dl H 07/22/17 0700 Carbon Dioxide Level 17 mmol/L L 07/22/17 0700 Chloride Level 110 mmol/L H 07/22/17 0700 Potassium Level 5.1 mmol/L H 07/22/17 0700 Sodium Level 138 mmol/L 07/22/17 0700 Urine Mucus None /HPF 07/19/17 1257 Urine Bacteria Few /HPF 07/19/17 1257 Urine Amorphous Crystals Few /HPF 07/19/17 1257 Urine Squamous Epithelial Cells None /LPF 07/19/17 1257 Urine WBC Clumps Many /HPF 07/19/17 1257 Urine WBC 1165 /HPF 07/19/17 1257 Urine RBC 22 /HPF 07/19/17 1257 Urine Leukocyte Esterase Large H 07/19/17 1257 Urine Urobilinogen Negative mg/dL 07/19/17 1257 Urine Bilirubin Negative 07/19/17 1257 Urine Nitrite Negative 07/19/17 1257 Urine Blood Small 07/19/17 1257 Urine Ketones Negative mg/dL 07/19/17 1257 Urine Glucose (UA) Negative mg/dL 07/19/17 1257 Urine Protein 30 mg/dL 07/19/17 1257 Urine Specific Patterson 1.008 07/19/17 1257 Urine pH 6.0 pH 07/19/17 1257 Urine Clarity Turbid 07/19/17 1257 Urine Color Yellow 07/19/17 1257 White Blood Count 9.2 k/uL 07/19/17 1255 Hemoglobin 10.3 g/dL L 07/19/17 1255 Hematocrit 30.1 % L 07/19/17 1255 Platelet Count 238 K/uL 07/19/17 1255 Platelet Count 211 K/uL 07/20/17 0511 Hematocrit 27.2 % L 07/20/17 0511 Hemoglobin 9.4 g/dL L 07/20/17 0511 White Blood Count 8.1 k/uL 07/20/17 0511 [facility] LAB *LIVE* [address] [place] [address] ISMAEL PANDEY M.D., DIRECTOR OF LABORATORY SERVICES BRENDA WILLETT M.D., PATHOLOGIST RUN DATE: 07/21/17 Specimen Inquiry Report PAGE 1 RUN TIME: 921 PATIENT: KARAN DICKERSON ACCT: [id number] LOC: MED U : [id number] AGE/SX: 67/M ROOM: [facility] REG : 07/19/[address]: DAMIR PENA MD : 1950 BED: 275 DIS : STATUS: ADM IN TLOC: SPEC #: [id number] GARRICK: 07/19/17 STATUS: COMP REQ #: [id number] RECD: 07/19/[address] [facility] [address]: RENITA BLANCO [facility] SOURCE: [facility]MS ENTR: 07/19/[address]: FAZAL MARCUM MD [facility]: ORDERED: CULT URINE Procedure Result Verified URINE CULTURE Final 07/21/17 NO GROWTH AFTER 2 DAYS Imaging PATIENT NAME: Karan Dickerson : 1950 MR: [id number] V: [id number] EXAM DATE: ORDERING PHYSICIAN: RENITA BLANCO TECHNOLOGIST: Location: [facility] Patient: Karan Dickerson : 1950 Visit/Account:[id number] Date of Sevice: 07/19/2017 Renal ultrasound Indication: Abnormal creatinine. History of urinary tract infection. Comparison: None available Findings: Right kidney measures 11.8 x 6.4 x 5.4 cm in cc, AP, and transverse dimensions respectively. Left kidney measures 11.5 x 4.9 x 5.3 cm in cc, AP, and transverse dimensions respectively. There is normal echogenicity of the bilateral kidneys. There is a least moderate hydronephrosis seen bilaterally without stones or masses identified. Blood flow both kidneys normal symmetric. The resistive index right kidney 0.75 and the left 0.63. Bilateral ureteral jets were seen. Left ureteral jet was not a strong as the right. Urinary bladder imaging shows debris without other focal normality and there is prominent post residual 1339 mL.. Visualized abdominal aorta and IVC are unremarkable. IMPRESSION: 1. Moderate bilateral hydronephrosis without cause identified. 2. There is debris seen within the urinary bladder. There is significant postvoid residual present in the urinary bladder. Report Dictated By: Keegan Diaz at 07/19/2017 2:12 PM Report E-Signed By: Keegan Diaz at 07/19/2017 2:14 PM WSN:[id number] PATIENT NAME: Karan Dickerson : 1950 MR: [id number] V: [id number] EXAM DATE: [id number] ORDERING PHYSICIAN: RENITA BLANCO TECHNOLOGIST: Location: [facility] Patient: Karan Dickerson : 1950 Visit/Account:[id number] Date of Sevice: 07/19/2017 COMPUTED TOMOGRAPHY OF THE Abdomen and Pelvis without CONTRAST INDICATION: Reportedly an abdominal mass. TECHNIQUE: Contiguous axial 3.[address] images were obtained through the abdomen and pelvis without intravenous contrast. Of note, there is significant residual barium within the colon from the upper GI study of July 17, 2017. Coronal and sagittal reformatted images were submitted. COMPARISON: Upper GI July 17, 2017. FINDINGS: With the large volume of barium in the colon, which results in marked streak artifact throughout almost the entirety of the abdomen and pelvis, the examination should be considered essentially nondiagnostic. The bladder is distended. There is moderate aortic atherosclerosis. The morphology of the left kidney appears atypical but is largely obscured. There are degenerative findings in the spine. Mild atelectasis at the lung bases. IMPRESSION: Essentially nondiagnostic study given extensive barium within the colon and associated artifact. However, the bladder is significantly distended and likely results in the small bowel displacement described/demonstrated on the upper GI study of July 17, 2017. Atypical appearing morphology of the left kidney (largely obscured by artifact) . Repeat CT when barium has cleared the colon is recommended. One of the following dose optimization techniques was utilized in the performance of this exam: Automated exposure control; adjustment of the mA and/ or kV according to the patient's size; or use of an iterative reconstruction technique. Specific details can be referenced in the facility's radiology CT exam operational policy. Report Dictated By: Nick Valdez MD at 07/19/2017 2:30 PM Report E-Signed By: Nick Valdez MD at 07/19/2017 2:38 PM WSN:[id number] Condition: Improved Discharge: Home, Self Care Follow-Up Labs: Other (Basic metabolic panel on Sun07/25/[address] Marcum.) Time Spent: > 30 min Discharge Instructions Home Meds Discontinued Reported Medications Vitamin B Complex (VITAMIN B COMPLEX) 1 Each Capsule, 1 EACH PO QDAY, CAPSULE 05/10/17 Tamsulosin Hcl (FLOMAX) 0.4 Mg Cap.er.24h, 0.4 MG PO QDAY, CAP 02/14/17 Aspirin (ASPIRIN) 81 Mg Tab.chew, 81 MG PO DAILY, TAB.CHEW 05/13/13 Discontinued Scripts Amoxicillin/Pot Clav 875-125 Mg Tab (AUGMENTIN 875-125 TABLET) 1 Each Tablet, 1 TAB PO Q12H for 10 Days, #20 TAB Prov:LOLA CUNNINGHAM MD 07/18/17 Benazepril Hcl (LOTENSIN) 20 Mg Tablet, 1 TAB PO QDAY, #90 TAB 4 Refills Prov:LOLA CUNNINGHAM MD 05/02/17 Follow up Referrals: Family Practice @ [facility] with Fazal Marcum Md Urology @ Urology with Ton Santos Md Diet: Regular Activity: As Tolerated, No Exertion Special Instructions: Collins catheter in place. Follow up with Dr. Marcum today (MON 07/23/17). Follow up with Dr. Santos in next 5-7 days or sooner if any problems. Copies to: LOLA CUNNINGHAM MD; FAZAL MARCUM MD; TON SANTOS MD Venous Thromboembolism Antithrombotics Is Pt On Any Antithrombotics?: No Problem Qualifiers (1) Acute renal failure: Acute renal failure type: unspecified Qualified Codes: N17.9 - Acute kidney failure, unspecified FRANCIE MURPHY MD Jul 23, 2017 08:38
--- NOTE | 2017-07-23 14:14 | Medical Nutrition Therapy ---
Nutrition Anthropometrics Height (Inches): 72.00 Height (Calculated Centimeters: 182.475630 Weight (Pounds): 195 Weight (Calculated Kilograms): 88.451 BMI Calculated: 26.44 Rickie Nutrition Score: Adequate Rickie Nutrition Risk Score: 22 Dietary Referral Nutrition Risk Factors: Nutrition Risk Comment: Physical Findings Physical Appearance: Overweight BMI 25-29 Skin Appearance Skin Appearance: Edema Edema Location Modifier: Edema Location: Type of Edema: Degree of Edema: Gastrointestinal Symptoms GI Symtoms: Tube Present: Bowel Sounds: Recent Bowel Pattern: Stool Characteristics: Nutritional Diagnosis Nutritional Risk Acuity 1: Acute/ES Renal Nutritional Risk Acuity 2: Pr Appetite > 3d Nutritional Risk Acuity 3: Fair Appetite Past Medical History: HTN, BPH, inguinal hernia, gout Nutritional Acuity: 1-High Nutrition Diagnosis: Inadequate Food Intake Nutrition Etiology: Physiological Causes Nutrition Problem/Etiology/Sym: Inadequate Oral Intake related to decreased ability to consume sufficient energy, e.g. no appetite AEB reports of insufficient intake of energy from diet when compared to requirements. Energy Requirement: 2370 (Trilla-St Jeor: Actual BW X 1.4) Protein Requirement: 71 (Actual BW Kg X .8) Nutrition Intervention: Cont diet as ordered, Encourage intake Nutrition Monitoring & Eval Nutrition Goals: Eat 75-100% Meal Nutrition Follow-Up: Good Intake RD Patient Assessment Time: [address] Assessment Type: RD Assessment Patient Nutrition Acuity: 1-High Follow Up Date: Jul 25, 2017 Nutritional Comment: Pt admitted for acute renal failure and hyperkalemia. Pt reports decreased appetite over the last month. Notable labs include low H/H, K+ 5.5, BUN 87, and Cr 8. Total pro and alb WNL. Pt on TOM with most meals consumed at 75-100% . Will continue to monitor intakes and labs. 07/23 Pt continues on TOM with intakes averaging 82% of regular portions. Notable labs include low H/H, BUN 65, and Cr 5.8 which is improving. Will continue to monitor labs, intakes, etc. OLESYA MCKNIGHT Jul 23, 2017 10:17
== END 2017-07-23 11:25 | disposition home or self-care (01) | DRG 683 ==
LOC: ER 12:42 → MED 16:03
PROVIDERS: ADMIT Internal Medicine; ATTEND Internal Medicine
DX: N17.9 Acute kidney failure, unspecified (principal); N13.8 Other obstructive and reflux uropathy; N39.0 Urinary tract infection, site not specified; N13.30 Unspecified hydronephrosis; N32.0 Bladder-neck obstruction; N40.1 Benign prostatic hyperplasia with lower urinary tract symptoms; R33.8 Other retention of urine; E87.5 Hyperkalemia; I12.9 Hypertensive chronic kidney disease with stage 1 through stage 4 chronic kidney disease, or unspecified chronic kidney disease; N18.9 Chronic kidney disease, unspecified; D63.1 Anemia in chronic kidney disease; M1A.9XX0 Chronic gout, unspecified, without tophus (tophi)
CPT/HCPCS: 36415; 74176; 74245; 76705; 81001; 82040; 82247; 82310; 82374; 82435; 82565; 82728; 82947; 83540; 83735; 84075; 84132; 84153; 84155; 84295; 84450; 84460; 84520; 85018; 85025; 85045; 87088; 99285; J0696; J7030; J7040

== ENCOUNTER → 2017-08-02 | Outpatient (CLI) | payer MEDICARE, OTHER ==
[2017-07-20 08:55] VITALS: BMI 26.4
--- NOTE | 2017-08-02 15:24 | RADIOLOGY IMAGING REPORT ---
FACILITY: [facility] PATIENT NAME: Silvano Dahl : 1950 MR: [id number] V: [id number] EXAM DATE: ORDERING PHYSICIAN: STEPHANIE HIGHTOWER TECHNOLOGIST: Location: [facility] Patient: Silvano Dahl : 1950 Visit/Account:[id number] Date of Sevice: 08/02/2017 KIDNEYS EXAMINATION: Renal ultrasound. History: Hydronephrosis history, Clolins catheter COMPARISON STUDIES: Renal ultrasound July 19, [address] abdomen pelvis July 19, 2017 FINDINGS: Kidneys: Right kidney- 10.8 x 5.5 x 4.8 cm Left kidney- 10.6 x 6.5 x 5.7 cm Uniform and symmetric blood flow in each kidney by Doppler ultrasound. Hydronephrosis: none There is a mild hydronephrosis bilaterally although markedly improved when compared to the prior stud ies. Left kidney is not ideally seen due to overlying bowel gas Bladder: The urinary bladder is decompressed by Collins catheter. There is a thick hypoechoic structur e surrounding the decompressed bladder measuring up to 2.5 cm in thickness. It is unclear as to whet her this represents a very thickened decompressed bladder wall or adjacent hypoechoic structure such as bowel. Abdominal aorta and IVC: Aorta and IVC are patent by Doppler ultrasound. IMPRESSION: There is mild bilateral hydronephrosis although markedly improved when compared the prior studies. T he left kidney is not ideally seen due to overlying bowel gas The bladder is decompressed with a Collins catheter. There is a hypoechoic structure surrounding the decompressed bladder measuring up to 2.5 cm in thickn ess. This could represent an extremely thickened decompressed bladder wall or an adjacent hypoechoic structure such as bowel bladder ultrasound with the Collins catheter clamped may be of value. Report Dictated By: Brigitte Barton MD at 08/02/2017 3:14 PM Report E-Signed By: Brigitte Barton MD at 08/02/2017 3:19 PM WSN:[id number]
== END ==
LOC: US 01:25
PROVIDERS: ATTEND Urology
DX: N13.30 Unspecified hydronephrosis (principal); Z96.0 Presence of urogenital implants
CPT/HCPCS: 76705

== ENCOUNTER → 2017-08-07 | Outpatient (CLI) | payer MEDICARE, OTHER ==
[2017-07-20 08:55] VITALS: BMI 26.4
== END ==
LOC: LAB 14:38
PROVIDERS: ATTEND Urology
DX: N18.9 Chronic kidney disease, unspecified (principal); R97.20 Elevated prostate specific antigen [PSA]
CPT/HCPCS: 36415; 82040; 82247; 82310; 82374; 82435; 82565; 82947; 84075; 84132; 84153; 84155; 84295; 84450; 84460; 84520

== ENCOUNTER → 2017-08-21 | Outpatient (CLI) | payer MEDICARE, OTHER ==
[2017-07-20 08:55] VITALS: BMI 26.4
[2017-08-21 15:01] LABS: PLATELET COUNT, AUTOMATED 297 K/uL (150-450)
== END ==
LOC: LAB 14:45
PROVIDERS: ATTEND Urology
DX: N18.9 Chronic kidney disease, unspecified (principal); N13.30 Unspecified hydronephrosis; R33.9 Retention of urine, unspecified; E83.41 Hypermagnesemia
CPT/HCPCS: 36415; 82040; 82247; 82310; 82374; 82435; 82565; 82947; 83735; 84075; 84100; 84132; 84155; 84295; 84450; 84460; 84520; 85025

== ENCOUNTER → 2017-11-29 | Outpatient (CLI) | payer MEDICARE, OTHER ==
[2017-07-20 08:55] VITALS: BMI 26.4
== END ==
LOC: LAB 10:26
PROVIDERS: ATTEND Internal Medicine Nephrology
DX: N17.9 Acute kidney failure, unspecified (principal); N18.4 Chronic kidney disease, stage 4 (severe); D63.1 Anemia in chronic kidney disease
CPT/HCPCS: 36415; 82310; 82374; 82435; 82550; 82565; 82570; 82728; 82947; 83540; 83550; 83970; 84132; 84156; 84295; 84520

== ENCOUNTER → 2018-01-17 | Outpatient (CLI) | payer MEDICARE, OTHER ==
[2017-07-20 08:55] VITALS: BMI 26.4
== END ==
LOC: LAB 13:18
PROVIDERS: ATTEND Internal Medicine Nephrology
DX: R82.79 Other abnormal findings on microbiological examination of urine (principal); B96.20 Unspecified Escherichia coli [E. coli] as the cause of diseases classified elsewhere
CPT/HCPCS: 81001; 87077; 87088; 87186

== ENCOUNTER → 2018-02-05 | Outpatient (CLI) | payer MEDICARE, OTHER ==
[2017-07-20 08:55] VITALS: BMI 26.4
[2018-02-05 10:16] LABS: PLATELET COUNT, AUTOMATED 257 K/uL (150-450)
== END ==
LOC: LAB 09:52
PROVIDERS: ATTEND Internal Medicine Nephrology
DX: I15.1 Hypertension secondary to other renal disorders (principal); N28.89 Other specified disorders of kidney and ureter; N13.9 Obstructive and reflux uropathy, unspecified; N18.4 Chronic kidney disease, stage 4 (severe); D63.1 Anemia in chronic kidney disease; N17.9 Acute kidney failure, unspecified
CPT/HCPCS: 36415; 82040; 82310; 82374; 82435; 82565; 82570; 82947; 84100; 84132; 84156; 84295; 84520; 85025

== ENCOUNTER → 2018-02-25 | Outpatient (CLI) | payer MEDICARE, OTHER ==
[2017-07-20 08:55] VITALS: BMI 26.4
== END ==
LOC: LAB 09:58
PROVIDERS: ATTEND Urology
DX: R30.0 Dysuria (principal); N13.30 Unspecified hydronephrosis; B96.20 Unspecified Escherichia coli [E. coli] as the cause of diseases classified elsewhere
CPT/HCPCS: 81001; 87077; 87088; 87186

== ENCOUNTER → 2018-03-05 | Outpatient (CLI) | payer MEDICARE, OTHER ==
[2017-07-20 08:55] VITALS: BMI 26.4
== END ==
LOC: LAB 18:44
PROVIDERS: ATTEND Urology
DX: N39.0 Urinary tract infection, site not specified (principal); R33.8 Other retention of urine; B96.29 Other Escherichia coli [E. coli] as the cause of diseases classified elsewhere
CPT/HCPCS: 81001; 87077; 87088; 87186

== ENCOUNTER → 2018-07-15 | Outpatient (CLI) | payer MEDICARE, OTHER ==
[2017-07-20 08:55] VITALS: BMI 26.4
== END ==
LOC: LAB 10:40
PROVIDERS: ATTEND Internal Medicine Nephrology
DX: N15.1 Renal and perinephric abscess (principal); N28.89 Other specified disorders of kidney and ureter; N25.81 Secondary hyperparathyroidism of renal origin; N18.4 Chronic kidney disease, stage 4 (severe); D63.1 Anemia in chronic kidney disease
CPT/HCPCS: 36415; 82040; 82310; 82374; 82435; 82565; 82570; 82947; 83970; 84100; 84132; 84156; 84295; 84520; 84550

== ENCOUNTER 2018-09-30 11:23 | Outpatient (RCR) | payer MEDICARE, OTHER ==
[2017-07-20 08:55] VITALS: BMI 26.4
[2018-09-30 11:37] LABS: PLATELET COUNT, AUTOMATED 274 K/uL (150-450)
--- NOTE | 2018-10-01 17:00 | RADIOLOGY IMAGING REPORT ---
FACILITY: [facility] PATIENT NAME: Silvano Dahl : 1950 MR: [id number] V: [id number] EXAM DATE: ORDERING PHYSICIAN: STEPHANIE HIGHTOWER TECHNOLOGIST: Location: [facility] Patient: Silvano Dahl : 1950 Visit/Account:[id number] Date of Sevice: 10/01/2018 KIDNEYS EXAMINATION: Renal ultrasound. History: Chronic urinary retention COMPARISON STUDIES: August 02, 2017 FINDINGS: Kidneys: Right kidney- 9.9 x 5.1 x 4.1 cm Left kidney- 8 x 3.8 x 4.9 cm. Left kidney was difficult to image by technologist notation Uniform and symmetric blood flow in each kidney by Doppler ultrasound. Hydronephrosis: Minimal hydronephrosis on the right Resistive index on the right 0.66 on the left 0.67 Bladder: Bladder prevoid volume 345 mL. Post void residual 11 mL. Bilateral ureteral jets are prese nt bladder wall appeared to be mildly thickened Abdominal aorta and IVC: Aorta and IVC are patent by Doppler ultrasound. IMPRESSION: There is a minimal hydronephrosis on the right Bladder wall appeared mildly thickened. Report Dictated By: Brigitte Barton MD at 10/01/2018 4:52 PM Report E-Signed By: Brigitte Barton MD at 10/01/2018 4:56 PM WSN:[id number]
== END 2018-10-01 18:00 | disposition home or self-care (01) ==
LOC: US 11:23 → EDSTATUS 10-01 11:23 → US 10-01 18:00
PROVIDERS: ATTEND Urology
DX: R33.8 Other retention of urine (principal); N18.9 Chronic kidney disease, unspecified
CPT/HCPCS: 36415; 76705; 82565; 85025

== ENCOUNTER → 2018-11-18 | Outpatient (CLI) | payer MEDICARE, OTHER ==
[2017-07-20 08:55] VITALS: BMI 26.4
== END ==
LOC: LAB 11:29
PROVIDERS: ATTEND Nurse Practitioner
DX: N17.9 Acute kidney failure, unspecified (principal); N18.4 Chronic kidney disease, stage 4 (severe)
CPT/HCPCS: 36415; 82310; 82374; 82435; 82565; 82947; 84132; 84295; 84520

== ENCOUNTER → 2018-12-13 | Outpatient (CLI) | payer MEDICARE, OTHER ==
[2017-07-20 08:55] VITALS: BMI 26.4
== END ==
LOC: LAB 09:45
PROVIDERS: ATTEND Internal Medicine Nephrology
DX: N18.4 Chronic kidney disease, stage 4 (severe) (principal)
CPT/HCPCS: 36415; 82310; 82374; 82435; 82565; 82947; 84132; 84295; 84520

== ENCOUNTER → 2019-02-04 | Outpatient (CLI) | payer MEDICARE, OTHER ==
[2017-07-20 08:55] VITALS: BMI 26.4
[2019-02-04 12:55] LABS: PLATELET COUNT, AUTOMATED 299 K/uL (150-450)
== END ==
LOC: LAB 12:27
PROVIDERS: ATTEND Internal Medicine Nephrology
DX: N18.4 Chronic kidney disease, stage 4 (severe) (principal); D63.1 Anemia in chronic kidney disease; I15.1 Hypertension secondary to other renal disorders; N28.89 Other specified disorders of kidney and ureter; N25.81 Secondary hyperparathyroidism of renal origin; E79.0 Hyperuricemia without signs of inflammatory arthritis and tophaceous disease
CPT/HCPCS: 36415; 82040; 82310; 82374; 82435; 82565; 82570; 82947; 83970; 84100; 84132; 84156; 84295; 84520; 84550; 85025